=== PATIENT | female | born 1955 | race Caucasian/White ===

== ENCOUNTER 2016-10-06 12:55 | Inpatient (IN) | payer MEDICARE ==
[~2016-10-06] VITALS: Ht 172.7 cm; Wt 110.2 kg
--- NOTE | 2016-10-06 17:00 | NUR ---
ADMITTED PATIENT TO ROOM 101-B. PATIENT ACCOMPANIED BY AND AMBULANCE CREW VIA GURNEY. PATIENT IS IN STABLE CONDITION WITH V/S FOLLOWS BP 110/56. OR-88, T- 97.0, SPO2-94 AND RR-20. PATIENT IS ALERT AND ORIENTED X4. NO S/S OF DISTRESS. WITH MINIMAL PAIN OVER RIGHT KNEE. INFORMED DR. HINTON OF NEW ADMISSION. ORIENTED PATIENT TO UNIT, STAFF, ROOM AND USE OF DEVICES. SAFETY PRECAUTIONS MAINTAINED. CALL LIGHT WITHIN REACH.
[2016-10-06] MEDS ORDERED: BENZ1LOZ58 MM (18:21)
[2016-10-06] MEDS ORDERED: OXYC15TA2 PO (18:21)
[2016-10-06] MEDS ORDERED: ACET650T10 PO (18:21)
[2016-10-06] MEDS ORDERED: ONDA4AMP IVP (18:21)
[2016-10-06] MEDS ORDERED: MORP30TA59 PO (18:21)
[2016-10-06] MEDS ORDERED: DOCU-170 PO (18:21)
[2016-10-06] MEDS ORDERED: SENN8.6T60 PO (18:21)
[2016-10-06] MEDS ORDERED: NALO0.4D4 IV (18:21)
[2016-10-06] MEDS ORDERED: ZOLP10TA6 PO (18:21)
[2016-10-06] MEDS ORDERED: MAGN200T5 PO (18:21)
[2016-10-06] MEDS ORDERED: DIPH25TA62 PO (18:21)
[2016-10-06] MEDS ORDERED: CARI350T27 PO (18:21)
[2016-10-06] MEDS ORDERED: MAG-82 PO (18:21)
[2016-10-06] MEDS ORDERED: ASPI-869 PO (18:21)
[2016-10-06] MEDS ORDERED: CLON0.1T PO (18:21)
[2016-10-06] MEDS ORDERED: BISA10SU8 RC (18:21)
[2016-10-06] MEDS ORDERED: GABA-534 PO (18:21)
[2016-10-06] MEDS ORDERED: MAGN400O4 PO (18:21)
[2016-10-06] MEDS ORDERED: PANT40TA4 PO (18:21)
[2016-10-06] MEDS ORDERED: DULO30CA2 PO (18:21)
[2016-10-06] MEDS ORDERED: HYDR1DIS3 SQ (18:21)
[2016-10-06] MEDS ORDERED: ZOLPIDEM 5 MG TABLET PO PRN ×2 (18:30→20:30)
--- NOTE | 2016-10-06 19:30 | NUR ---
RECEIVED PATIENT AMBULATING TO BATHROOM WITH WALKER AND CONTACT GUARD ASSIST OF DAY NURSE. VOIDED IN ADEQUATE AMOUNTS IN TOILET S/P ALEXANDER D/C'D AT [facility]. C/O CHRONIC PAIN, BUT MANAGEABLE AT THIS TIME. RIGHT KNEE WITH GHANSHYAM WRAP INTACT. NO DRAINAGE NOTED. CSM ADEQUATE TO RIGHT TOES. MEDS ORDERED BEING ENTERED IN THE COMPUTER AT THIS TIME. CALL LIGHT WITHIN REACH AAT. INSTRUCTED PATIENT NOT TO GET OOB WITHOUT CALLING RN FIRST. PATIENT VERBALIZES UNDERSTANDING
[2016-10-06 20:14] VITALS: BP 105/53
[2016-10-06] MEDS ORDERED: OXYCODONE HCL 5 MG TABLET PO PRN ×2 (20:30)
[2016-10-06] MEDS ORDERED: ACETAMINOPHEN 325 MG TABLET PO PRN (20:30)
[2016-10-06] MEDS ORDERED: CLONIDINE HCL 0.1 MG TABLET PO PRN (20:30)
[2016-10-06] MEDS ORDERED: PANTOPRAZOLE SODIUM 40 MG TABLET.DR PO SCH (21:00)
[2016-10-06] MEDS: DOCUSATE SODIUM 100 MG CAPSULE PO SCH (21:26)
[2016-10-06] MEDS: MAGNESIUM OXIDE 400 MG TABLET PO SCH (21:26)
[2016-10-06] MEDS: ASPIRIN 325 MG TABLET PO SCH (21:26)
[2016-10-06] MEDS ORDERED: MORPHINE SULFATE SR 15 MG TABLET.SA PO SCH (22:00)
[2016-10-06] MEDS: MORPHINE SULFATE SR 30 MG TABLET.SA PO SCH (22:03)
[2016-10-07] MEDS ORDERED: diphenhydrAMINE 25 MG CAP PO PRN (00:30)
[2016-10-07] MEDS ORDERED: MAGNESIUM HYDROXIDE 30 ML LIQUID UDC PO PRN (00:30)
[2016-10-07] MEDS ORDERED: BENZOCAINE/MENTH/CETYLPYRD LOZENGE MM PRN (00:30)
[2016-10-07] MEDS ORDERED: MAG HYDROX/AL HYDROX/SIMETH 30 ML LIQUID UDC PO PRN (00:30)
[2016-10-07] MEDS ORDERED: SENNOSIDES 1 TABLET PO PRN (00:30)
[2016-10-07] MEDS ORDERED: BISACODYL 10 MG SUPP.RECT RC PRN (00:30)
[2016-10-07] MEDS: OXYCODONE HCL 5 MG TABLET PO PRN ×2 (03:41→08:19)
--- NOTE | 2016-10-07 06:00 | NUR ---
slept fairly well. medicated x 3 for chronic LBP and acute right knee pain with effective relief.voiding in adequate amounts after ambulating to toilet.s/p [place] d/c'd at [facility]. right knee niko wrap remains intact with good csm to toes. scd applied to left leg for vte prophylaxis.mrsa screening of bilateral nares sent to lab. call light in reach
[2016-10-07] MEDS: PANTOPRAZOLE SODIUM 40 MG TABLET.DR PO SCH (06:12)
[2016-10-07] MEDS: MORPHINE SULFATE SR 30 MG TABLET.SA PO SCH ×3 (06:13→21:59)
--- NOTE | 2016-10-07 07:00 | NUR ---
PT IS LAYING IN BED COMFORTABLY. NO S/S OF RESPIRATORY DISTRESS NOTED. ALL SAFETY NEEDS ARE MET. WILL CONTINUE TO MONITOR.
[2016-10-07 07:55] VITALS: BP 97/51
[2016-10-07] MEDS: GABAPENTIN 300 MG CAPSULE PO SCH ×3 (08:15→17:26)
[2016-10-07] MEDS: DOCUSATE SODIUM 100 MG CAPSULE PO SCH ×2 (08:16→20:51)
[2016-10-07] MEDS: DULOXETINE 30 MG CAPSULE.DR PO SCH (08:16)
[2016-10-07] MEDS: ASPIRIN 325 MG TABLET PO SCH ×2 (08:16→17:26)
[2016-10-07 11:05] VITALS: BP 97/51
--- NOTE | 2016-10-07 19:29 | NUR ---
NO CHANGES NOTED. PT GETS AGITATED AT TIMES, PT IS COOPERATIVE WITH NURSING TREATMENT AND INTERVENTIONS. NO S/S OF RESPIRATORY DISTRESS NOTED. NO PAIN REPORTED. ALL SAFETY NEEDS ARE MET.
--- NOTE | 2016-10-07 19:30 | NUR ---
RECEIVED PATIENT AWAKE , ALERT, AND ORIENTED. COMFORTABLE WITH MANAGEABLE PAIN LEVEL OF CHRONIC LBP AND RIGHT SURGICAL KNEE PAIN AT 4/10. AMBULATED WITH WALKER AND ONE CONTACT GUARD ASSIST TO BATHROOM.GAIT IS SLIGHTLY UNSTEADY. RIGHT KNEE WRAPPED WITH GHANSHYAM INTACT. CSM ADEQUATE TO RIGHT TOES. RIGHT LEG ELEVATED ON PILLOW FOR COMFORT. LRFT SCD FOR VTE PROPHYLAXIS. CALL LIGHT WITHIN REACH AAT. INSTRUCTED TO CALL RN FOR ANY REQUESTS AND TO NOT GET OOB BY SELF WITHOUT CALLING FIRST. PATIENT VERBALIZES UNDERSTANDING.
[2016-10-07] MEDS: MAGNESIUM OXIDE 400 MG TABLET PO SCH (20:51)
[2016-10-07 21:35] VITALS: BP 100/48
--- NOTE | 2016-10-08 05:30 | NUR ---
patient slept well tonight. improved ambulation to toilet with contact guard assist.independently pulls pants down, wipes herself and pulls her pants up.chronic pain and acute surgical pain from right knee managed with atc ms contin. right is wrapped with niko wrap, clean, dry, and intact/ free from injury this shift. all needs requested were met.call light within reach aat
[2016-10-08] MEDS: MORPHINE SULFATE SR 30 MG TABLET.SA PO SCH ×3 (05:57→21:30)
[2016-10-08] MEDS: PANTOPRAZOLE SODIUM 40 MG TABLET.DR PO SCH (06:28)
[2016-10-08 09:10] VITALS: BP 87/49
[2016-10-08] MEDS: DOCUSATE SODIUM 100 MG CAPSULE PO SCH ×2 (09:45→21:28)
[2016-10-08] MEDS: ASPIRIN 325 MG TABLET PO SCH ×2 (09:45→18:54)
[2016-10-08] MEDS: GABAPENTIN 300 MG CAPSULE PO SCH ×3 (09:45→18:54)
[2016-10-08] MEDS: OXYCODONE HCL 5 MG TABLET PO PRN (09:47)
[2016-10-08] MEDS: DULOXETINE 30 MG CAPSULE.DR PO SCH (09:49)
--- NOTE | 2016-10-08 19:00 | NUR ---
Patient remains alert, verbally responsive, coherent, afebrile, not in any form of acute distress. She had 2 hours on CPM.
[2016-10-08 20:40] VITALS: BP 100/51
[2016-10-08] MEDS: MAGNESIUM OXIDE 400 MG TABLET PO SCH (21:28)
[2016-10-08] MEDS: CARISOPRODOL 350 MG TABLET PO PRN (21:29)
[2016-10-09] MEDS: OXYCODONE HCL 5 MG TABLET PO PRN ×4 (02:37→23:34)
[2016-10-09] MEDS: PANTOPRAZOLE SODIUM 40 MG TABLET.DR PO SCH (06:13)
[2016-10-09] MEDS: MORPHINE SULFATE SR 30 MG TABLET.SA PO SCH ×3 (06:49→22:30)
[2016-10-09 08:00] VITALS: BP 99/52
--- NOTE | 2016-10-09 08:00 | NUR ---
Discussed plan of care with patient re: fall precaution and proper pain management through out today. Pt agreeable with plan of care. Noted bruising on right inner thigh and right lower leg with +3 edema. Ice applied on right knee. Call light is within reach.
[2016-10-09] MEDS: DOCUSATE SODIUM 100 MG CAPSULE PO SCH ×2 (08:32→21:01)
[2016-10-09] MEDS: DULOXETINE 30 MG CAPSULE.DR PO SCH (08:32)
[2016-10-09] MEDS: GABAPENTIN 300 MG CAPSULE PO SCH ×3 (08:32→16:21)
[2016-10-09] MEDS: ASPIRIN 325 MG TABLET PO SCH ×2 (08:32→16:21)
[2016-10-09] MEDS: CARISOPRODOL 350 MG TABLET PO PRN (11:24)
--- NOTE | 2016-10-09 18:30 | NUR ---
Plan of care effective. No fall noted and pain managed with medications. Dressing changed on right knee surgical incision with clif no redness noted.
--- NOTE | 2016-10-09 19:30 | NUR ---
PT ALERT AND ORIENTED IN BED. NO DISTRESS NOTED. COOLING MEASURES APPLIED TO RIGHT KNEE. PEDAL PULSES FELT BILATERALLY. SAFETY MAINTAINED. CALL LIGHT WITHIN REACH. WILL CONTINUE TO MONITOR.
[2016-10-09] MEDS: MAGNESIUM OXIDE 400 MG TABLET PO SCH (21:01)
[2016-10-09 22:12] VITALS: BP 98/52
[2016-10-09 23:35] VITALS: BP 119/64
[2016-10-10] MEDS: CARISOPRODOL 350 MG TABLET PO PRN ×3 (01:08→22:31)
[2016-10-10 01:10] VITALS: BP 112/79
[2016-10-10] MEDS: PANTOPRAZOLE SODIUM 40 MG TABLET.DR PO SCH (06:25)
[2016-10-10] MEDS: MORPHINE SULFATE SR 30 MG TABLET.SA PO SCH ×3 (06:26→21:12)
--- NOTE | 2016-10-10 06:49 | NUR ---
PT ALERT AND ORIENTED IN BED. NO DISTRESS NOTED. BP 119/56. MS CONTIN GIVEN ORDERED. ICE PROVIDED FOR RIGHT KNEE. SAFETY MAINTAINED. CALL LIGHT WITHIN REACH.
[2016-10-10 07:03] VITALS: BP 119/56
--- NOTE | 2016-10-10 07:19 | NUR ---
Patient received from carpet technician, resting comfortably in bed. No signs of acute distress noted, respirations even and unlabored. O2 sat WNL on RA, VS WNL. No other verbalized needs at this time. Safety and fall precautions maintained, call light within reach.
[2016-10-10 08:04] VITALS: BP 93/54
[2016-10-10] MEDS: ASPIRIN 325 MG TABLET PO SCH ×2 (09:03→16:37)
[2016-10-10] MEDS: DULOXETINE 30 MG CAPSULE.DR PO SCH (09:03)
[2016-10-10] MEDS: GABAPENTIN 300 MG CAPSULE PO SCH ×3 (09:03→16:38)
[2016-10-10] MEDS: DOCUSATE SODIUM 100 MG CAPSULE PO SCH ×2 (09:03→21:13)
[2016-10-10] MEDS: OXYCODONE HCL 5 MG TABLET PO PRN (09:59)
--- NOTE | 2016-10-10 19:30 | NUR ---
Received patient resting in bed with no s/s of distress. Call light within reach. Assured of frequent checks during the shift. Will continue to monitor.
[2016-10-10] MEDS: MAGNESIUM OXIDE 400 MG TABLET PO SCH (21:13)
[2016-10-11] MEDS: CARISOPRODOL 350 MG TABLET PO PRN (03:55)
[2016-10-11] MEDS: OXYCODONE HCL 5 MG TABLET PO PRN ×3 (04:00→23:49)
[2016-10-11] MEDS: PANTOPRAZOLE SODIUM 40 MG TABLET.DR PO SCH (06:49)
--- NOTE | 2016-10-11 07:46 | NUR ---
Patient resting in bed with no s/s of distress, verbalized a little relief of pain from medications. Respirations even and unlabored. Dressing changed. Kept comfortable. Safety precautions in place. Call light kept within reach. Endorsed accordingly.
[2016-10-11 08:28] VITALS: BP 92/50
[2016-10-11] MEDS: GABAPENTIN 300 MG CAPSULE PO SCH ×3 (09:34→16:57)
[2016-10-11] MEDS: DOCUSATE SODIUM 100 MG CAPSULE PO SCH ×2 (09:34→21:13)
[2016-10-11] MEDS: DULOXETINE 30 MG CAPSULE.DR PO SCH (09:34)
[2016-10-11] MEDS: ASPIRIN 325 MG TABLET PO SCH ×2 (09:34→16:57)
[2016-10-11] MEDS: MORPHINE SULFATE SR 30 MG TABLET.SA PO SCH ×3 (09:51→22:26)
[2016-10-11 12:00] VITALS: BP 108/68
--- NOTE | 2016-10-11 19:20 | NUR ---
Received patient in bed. Alert and verbally responsive. Able to make needs known. Denies any pain and discomfort at this time. No acute distress. No SOB. Dressing intact on R knee. Slight swelling noted. Pitting edema +2. Bruising noted on right lower extremity. Kept clean and dry. All needs attended to promptly. Call light within reach. Will continue to monitor.
[2016-10-11 20:00] VITALS: BP 132/60
[2016-10-11] MEDS: MAGNESIUM OXIDE 400 MG TABLET PO SCH (21:13)
[2016-10-12] MEDS: MORPHINE SULFATE SR 30 MG TABLET.SA PO SCH ×3 (06:06→22:29)
[2016-10-12] MEDS: PANTOPRAZOLE SODIUM 40 MG TABLET.DR PO SCH (06:08)
--- NOTE | 2016-10-12 06:10 | NUR ---
Patient awake at this time. Slept comfortably through out the night. Pain medication given as ordered. Pain level 8/10 in right knee. No acute distress noted. No SOB. Amublate to the bathroom with walker. Tolerated well. All needs attended to promptly. Call light within reach. Will continue to monitor.
[2016-10-12] MEDS: ASPIRIN 325 MG TABLET PO SCH ×2 (09:07→18:09)
[2016-10-12] MEDS: GABAPENTIN 300 MG CAPSULE PO SCH ×3 (09:08→18:09)
[2016-10-12] MEDS: DULOXETINE 30 MG CAPSULE.DR PO SCH (09:08)
[2016-10-12] MEDS: DOCUSATE SODIUM 100 MG CAPSULE PO SCH ×2 (09:08→21:09)
[2016-10-12] MEDS: OXYCODONE HCL 5 MG TABLET PO PRN (10:41)
[2016-10-12 10:45] VITALS: BP 92/43
--- NOTE | 2016-10-12 15:49 | NUR ---
Administrative Operations Coordinator: TYSON met with patient and at bedside to assess needs and provide support. Pt appeared fatigued during interview, however was calm and cooperative. Pt reported she was feeling tired due to physical therapy earlier. She stated her leg is "getting use to" ambulating again. She reported she has been feeling tired these past two days, however is motivated to complete therapy. Pt's was present during interview who demonstrated strong support. Per pt's , Cm he will be at home to provide additional care for the pt. Pt requested some DME upon discharge, TYSON will refer to Eveline to follow-up. TYSON provided active listening and supportive counseling throughout interview. TYSON will reassess for additional needs prior to pt being discharged. TYSON will remain available as needed. Addendum: 10/12/16 at 1559 by ELSA MEHTA Pt requested LADONNA, TYSON provided.
--- NOTE | 2016-10-12 18:30 | NUR ---
Pt tolerated physical therapy today. Pt denies any c/o pain. Call light is within reach.
[2016-10-12 21:00] VITALS: BP 98/45
[2016-10-12] MEDS: MAGNESIUM OXIDE 400 MG TABLET PO SCH (21:09)
[2016-10-12 22:30] VITALS: BP 114/50
[2016-10-13] MEDS: CARISOPRODOL 350 MG TABLET PO PRN (00:35)
--- NOTE | 2016-10-13 05:26 | NUR ---
Patient alert and oriented and verbally able to let needs known. Did complain of pain and discomfort, medication administered as ordered with some relief. Patient does have call light within reach, all needs attended to .
[2016-10-13] MEDS: MORPHINE SULFATE SR 30 MG TABLET.SA PO SCH ×3 (06:19→21:13)
[2016-10-13] MEDS: PANTOPRAZOLE SODIUM 40 MG TABLET.DR PO SCH (06:19)
[2016-10-13 08:50] VITALS: BP 97/47
[2016-10-13] MEDS: GABAPENTIN 300 MG CAPSULE PO SCH ×3 (09:27→16:01)
[2016-10-13] MEDS: ASPIRIN 325 MG TABLET PO SCH ×2 (09:27→16:01)
[2016-10-13] MEDS: DOCUSATE SODIUM 100 MG CAPSULE PO SCH ×2 (09:27→21:12)
[2016-10-13] MEDS: OXYCODONE HCL 5 MG TABLET PO PRN ×2 (09:28→16:01)
[2016-10-13] MEDS: DULOXETINE 30 MG CAPSULE.DR PO SCH (09:52)
--- NOTE | 2016-10-13 10:00 | NUR ---
REMAIN ON PAIN MANAGEMENT ORDERED AND HELPFUL RIGHT KNEE DRESSING CHANGED WITH ALF INTACT WITH NO DRAINAGE AT THIS TIME.
[2016-10-13 11:00] VITALS: BP 100/47
--- NOTE | 2016-10-13 14:09 | NUR ---
IDT MEETING 10/13/16
[2016-10-13 16:16] VITALS: BP 103/47
--- NOTE | 2016-10-13 18:00 | NUR ---
CONTINUE ON CPM MACHINE AND TOLERATING 80 DEGREES AT THIS TIME
[2016-10-13 20:01] VITALS: BP 102/51
[2016-10-13] MEDS: MAGNESIUM OXIDE 400 MG TABLET PO SCH (21:12)
[2016-10-14] MEDS: OXYCODONE HCL 5 MG TABLET PO PRN ×3 (01:40→18:05)
[2016-10-14] MEDS: MORPHINE SULFATE SR 30 MG TABLET.SA PO SCH ×3 (06:00→21:39)
[2016-10-14] MEDS: PANTOPRAZOLE SODIUM 40 MG TABLET.DR PO SCH (06:00)
--- NOTE | 2016-10-14 06:06 | NUR ---
Patient alert and oriented and verbally able to let needs known. Slept well throughout the night, patient ambulatory to restroom, administered medications as ordered. Call light within reach, will continue to monitor.
--- NOTE | 2016-10-14 07:15 | NUR ---
Patient received from lieutenant shift supervisor, resting comfortably in bed. No signs of acute distress noted, respirations even and unlabored. VS WNL, no complaints of pain, no other verbalized needs at this time. Surgical incision to right knee clean and dry, no redness or swelling noted. Safety precautions and fall precautions maintained, call light within reach.
[2016-10-14 08:00] VITALS: BP 98/51
[2016-10-14] MEDS: ASPIRIN 325 MG TABLET PO SCH ×2 (08:35→18:00)
[2016-10-14] MEDS: DOCUSATE SODIUM 100 MG CAPSULE PO SCH ×2 (08:35→21:38)
[2016-10-14] MEDS: DULOXETINE 30 MG CAPSULE.DR PO SCH (08:35)
[2016-10-14] MEDS: GABAPENTIN 300 MG CAPSULE PO SCH ×3 (08:35→17:58)
[2016-10-14 20:05] VITALS: BP 110/46
--- NOTE | 2016-10-14 21:00 | NUR ---
NSG: Received Patient alert and oriented and verbally responsive laying in bed.able to let needs known. patient c/o right knee pain and discomfort, medication administered as ordered with some relief. compliant with meds, all needs attended .continue monitoring for safety.
[2016-10-14] MEDS: MAGNESIUM OXIDE 400 MG TABLET PO SCH (21:39)
[2016-10-14] MEDS: CARISOPRODOL 350 MG TABLET PO PRN (22:24)
[2016-10-15] VITALS (9 sets, daily range): BP systolic 99–121; BP diastolic 49–63
[2016-10-15] MEDS: OXYCODONE HCL 5 MG TABLET PO PRN ×5 (02:17→23:56)
[2016-10-15] MEDS: MORPHINE SULFATE SR 30 MG TABLET.SA PO SCH ×3 (05:31→21:13)
[2016-10-15] MEDS: PANTOPRAZOLE SODIUM 40 MG TABLET.DR PO SCH (06:08)
[2016-10-15 06:50] LABS: BASOPHILS # (AUTO) 0.2 K/uL (0.0-8.0); BASOPHILS % (AUTO) 3.1 % (0.0-2.0); EOSINOPHILS # (AUTO) 0.6 K/uL (0.0-0.7); EOSINOPHILS % (AUTO) 9.5 % (0.0-7.0); LYMPHOCYTES # (AUTO) 2.1 K/UL (0.8-4.8); LYMPHOCYTES % (AUTO) 32.4 % (20.5-51.5); MEAN CORPUSCULAR HEMOGLOBIN 28.2 UUG (27.0-31.0); MEAN CORPUSCULAR HGB CONC 33 g/dL (32.0-37.0); MEAN CORPUSCULAR VOLUME 86.8 FL (81.0-99.0); MONOCYTES # (AUTO) 0.6 K/UL (0.1-1.30); MONOCYTES % (AUTO) 9.2 % (0.0-11.0); NEUTROPHILS # (AUTO) 2.9 K/UL (1.8-8.9); NEUTROPHILS % (AUTO) 45.8 % (38.5-71.5); PLATELET COUNT (AUTO) 423 K/UL (150-450); RED BLOOD CELL COUNT(AUTO) 2.61 MIL/UL (4.2-5.4); WHITE BLOOD COUNT (AUTO) 6.4 K/UL (4.0-11.2)
--- NOTE | 2016-10-15 06:58 | NUR ---
NSG: Patient Remain alert and oriented and verbally able to let needs known. Slept well through the night, patient ambulatory to restroom, administered medications as ordered. Call light within reach, will continue to monitor. ms Contin po routine dose effective.
[2016-10-15 07:14] LABS: HEMATOCRIT 22.7 % (37-47); HEMOGLOBIN 7.4 G/DL (12.0-16.0)
[2016-10-15 07:27] LABS: BILIRUBIN,TOTAL 0.7 mg/dL (0.2-1.0); CREATININE 0.7 mg/dL (0.6-1.3); MAGNESIUM 2.2 mg/dL (1.8-2.4); PHOSPHOROUS 4.7 mg/dL (2.5-4.9); TOTAL PROTEIN, SERUM 6.3 g/dL (6.4-8.2)
[2016-10-15 07:59] LABS: THYROID STIMULATING HORMONE 2.176 mIU/mL (0.358-3.740)
[2016-10-15 08:42] LABS: BASOPHILS # (AUTO) 0.1 K/uL (0.0-8.0); BASOPHILS % (AUTO) 0.9 % (0.0-2.0); EOSINOPHILS # (AUTO) 0.6 K/uL (0.0-0.7); EOSINOPHILS % (AUTO) 9.7 % (0.0-7.0); HEMATOCRIT 24.7 % (37-47); LYMPHOCYTES % (AUTO) 32.3 % (20.5-51.5); MEAN CORPUSCULAR HEMOGLOBIN 27.7 UUG (27.0-31.0); MEAN CORPUSCULAR HGB CONC 32 g/dL (32.0-37.0); MEAN CORPUSCULAR VOLUME 86.4 FL (81.0-99.0); MONOCYTES # (AUTO) 0.6 K/UL (0.1-1.30); MONOCYTES % (AUTO) 9.9 % (0.0-11.0); NEUTROPHILS % (AUTO) 47.2 % (38.5-71.5); PLATELET COUNT (AUTO) 631 K/UL (150-450); RED BLOOD CELL COUNT(AUTO) 2.86 MIL/UL (4.2-5.4); WHITE BLOOD COUNT (AUTO) 6.3 K/UL (4.0-11.2)
[2016-10-15 08:48] LABS: HEMOGLOBIN 7.9 G/DL (12.0-16.0)
[2016-10-15] MEDS: GABAPENTIN 300 MG CAPSULE PO SCH ×3 (09:05→17:43)
[2016-10-15] MEDS: DULOXETINE 30 MG CAPSULE.DR PO SCH (09:05)
[2016-10-15] MEDS: ASPIRIN 325 MG TABLET PO SCH ×2 (09:05→17:43)
[2016-10-15] MEDS: DOCUSATE SODIUM 100 MG CAPSULE PO SCH ×2 (09:05→21:11)
[2016-10-15] MEDS ORDERED: IV NS 1000 ML 1,000 ML IV ONE (09:45)
--- NOTE | 2016-10-15 14:30 | NUR ---
PT alert and oriented. blood consent signed by the patient and by the MD. health teaching done. pt verbalized understanding. 1 pack rbc given to the patient. tolerating well. no signs of reaction from the transfusion. v/s checked and monitored and wnl.
--- NOTE | 2016-10-15 19:30 | NUR ---
Received patient ambulating in the hallways. No report of discomfort/pain at this time. Supervised during ambulation and back to her room. Call light within reach. Will continue to monitor.
[2016-10-15] MEDS: MAGNESIUM OXIDE 400 MG TABLET PO SCH (21:11)
[2016-10-15 22:49] LABS: BASOPHILS # (AUTO) 0.1 K/uL (0.0-8.0); BASOPHILS % (AUTO) 0.8 % (0.0-2.0); EOSINOPHILS # (AUTO) 0.5 K/uL (0.0-0.7); EOSINOPHILS % (AUTO) 7.3 % (0.0-7.0); HEMATOCRIT 25.9 % (37-47); HEMOGLOBIN 8.4 G/DL (12.0-16.0); LYMPHOCYTES # (AUTO) 1.8 K/UL (0.8-4.8); LYMPHOCYTES % (AUTO) 25.3 % (20.5-51.5); MEAN CORPUSCULAR HEMOGLOBIN 28.1 UUG (27.0-31.0); MEAN CORPUSCULAR HGB CONC 33 g/dL (32.0-37.0); MEAN CORPUSCULAR VOLUME 86.6 FL (81.0-99.0); MONOCYTES # (AUTO) 0.4 K/UL (0.1-1.30); MONOCYTES % (AUTO) 5.1 % (0.0-11.0); NEUTROPHILS # (AUTO) 4.3 K/UL (1.8-8.9); NEUTROPHILS % (AUTO) 61.5 % (38.5-71.5); PLATELET COUNT (AUTO) 562 K/UL (150-450); RED BLOOD CELL COUNT(AUTO) 2.99 MIL/UL (4.2-5.4); WHITE BLOOD COUNT (AUTO) 7.1 K/UL (4.0-11.2)
[2016-10-15] MEDS: CARISOPRODOL 350 MG TABLET PO PRN (22:51)
[2016-10-16] MEDS: OXYCODONE HCL 5 MG TABLET PO PRN ×4 (03:58→17:32)
[2016-10-16] MEDS: PANTOPRAZOLE SODIUM 40 MG TABLET.DR PO SCH (06:15)
[2016-10-16] MEDS: MORPHINE SULFATE SR 30 MG TABLET.SA PO SCH ×3 (06:18→22:07)
--- NOTE | 2016-10-16 07:43 | NUR ---
Patient resting in bed, respirations even and unlabored. No s/s of acute distress. CPM done for 1.5 hrs last night per patient's request. Pain interventions given during the shift: MS Contin, Oxycodone, Soma--as ordered. Verbalized some relief. Kept comfortable, needs attended. Slept intermittently. Complained of pain on incision site upon waking up this AM. Ice packs placed on affected body part. Endorsed pain reports and management to day shift. Supervised during ambulation. Call light kept within reach.
[2016-10-16] MEDS: ASPIRIN 325 MG TABLET PO SCH ×2 (09:24→17:23)
[2016-10-16] MEDS: GABAPENTIN 300 MG CAPSULE PO SCH ×3 (09:24→17:23)
[2016-10-16] MEDS: DOCUSATE SODIUM 100 MG CAPSULE PO SCH ×2 (09:24→20:39)
[2016-10-16] MEDS: DULOXETINE 30 MG CAPSULE.DR PO SCH (09:25)
--- NOTE | 2016-10-16 09:30 | NUR ---
RECEIVED PATIENT AWAKE IN BED. NO S/S OF DISTRESS. WITH COMPLAINTS OF PAIN OVER RIGHT KNEE RATED 10/10 RADIATING TO RIGHT FOOT AND ANKLE. SURGICAL SITE WARM TO TOUCH, NO EXUDATES OR DISCHARGER NOTED. BRUISING OVER FOOT, ANKLE AND LOWER LEG KNEE NOTED. PRN PAIN MEDICATIONS GIVEN. DRESSING CHANGED DONE. INFORMED DR GONZALES OF INCREASING PAIN. NO NEW ORDERS AT THIS TIME
[2016-10-16] MEDS: HYDROCORTISONE 1% CREAM 30 GM TUBE TP SCH ×2 (10:30→17:23)
--- NOTE | 2016-10-16 11:30 | NUR ---
SEEN AND EXAMINED BY DR. HINTON DUPLEX SCAN ORDERED STAT. LOVENOX 40 MG OD ORDERED. ELEVATED KNEE WITH PILLOWS. ATTENDED TO NEEDS PROMPTLY.
[2016-10-16] MEDS ORDERED: ENOXAPARIN SODIUM 30 MG/0.3 ML DISP.SYRIN SUBCUT SCH (13:00)
[2016-10-16 15:40] VITALS: BP 116/59
--- NOTE | 2016-10-16 17:59 | NUR ---
PAIN RATED 5/6. KEPT KNEES ELEVATED. EATING DINNER. TOLERATED DIET WELL.
--- NOTE | 2016-10-16 19:22 | NUR ---
Dr. Buchanan ordered to continue OT and PT. Possible discharge moved to 10/20 due to worsening pain with mobility and swelling. Endorsed.
--- NOTE | 2016-10-16 19:30 | NUR ---
Received patient resting bed. Respirations even and unlabored. Complained of pain at 7/10 on right leg. Intervention will be given. Will continue to monitor. Call light within reach.
[2016-10-16 20:00] VITALS: BP 113/57
[2016-10-16] MEDS: MAGNESIUM OXIDE 400 MG TABLET PO SCH (20:39)
[2016-10-16] MEDS: ENOXAPARIN SODIUM 40 MG/0.4 ML DISP.SYRIN SQ SCH (20:44)
[2016-10-16] MEDS: CARISOPRODOL 350 MG TABLET PO PRN (22:09)
--- NOTE | 2016-10-16 22:15 | NUR ---
Patient requested for Soma, administered as ordered. Incision site cleaned, dressing changed.
[2016-10-17] MEDS: OXYCODONE HCL 5 MG TABLET PO PRN ×3 (02:24→15:31)
--- NOTE | 2016-10-17 02:30 | NUR ---
Oxycodone 30mg given as ordered for pain level 7/10. Will reassess for effectiveness.
--- NOTE | 2016-10-17 04:17 | NUR ---
Ice packs placed on patient's right knee to help with pain relief and comfort. Patient stated, "That helps a lot."
[2016-10-17] MEDS: MORPHINE SULFATE SR 30 MG TABLET.SA PO SCH ×3 (06:12→21:08)
[2016-10-17] MEDS: PANTOPRAZOLE SODIUM 40 MG TABLET.DR PO SCH (06:13)
--- NOTE | 2016-10-17 06:35 | NUR ---
Patient went back to sleep after taking AM meds. Respirations even and unlabored. Pain meds given with some relief. Call light kept within reach. Frequent checks done. Needs attended. Kept clean and comforatble. Safety measures observed. Endorsed accordingly.
[2016-10-17] MEDS: ASPIRIN 325 MG TABLET PO SCH ×2 (08:51→17:15)
[2016-10-17] MEDS: DOCUSATE SODIUM 100 MG CAPSULE PO SCH ×2 (08:52→21:07)
[2016-10-17] MEDS: DULOXETINE 30 MG CAPSULE.DR PO SCH (08:52)
[2016-10-17] MEDS: GABAPENTIN 300 MG CAPSULE PO SCH ×3 (08:52→17:15)
[2016-10-17] MEDS: HYDROCORTISONE 1% CREAM 30 GM TUBE TP SCH ×2 (08:53→17:14)
--- NOTE | 2016-10-17 13:00 | NUR ---
SEEN AND EXAMINED BY DR. HINTON POSSIBLE DISCHARGE TOMORROW. EXAMINED COMPLAINTS OF RIGHT ANKLE PAIN. ASHANTI-SELF TID OVER AFFECTED AREA ORDERED.
--- NOTE | 2016-10-17 15:20 | NUR ---
DRESSING CHANGED DONE. NO DISCHARGES OVER WOUND NOTED. HYDROCORTISONE CREAM APPLIED. FLUSHED IV SITE. NO INFILTRATION OR INFECTION NOTED. IV SITE, PATENT.
--- NOTE | 2016-10-17 15:35 | NUR ---
APPLIED CPM ON 100 DEGREES TRACTION. PATIENT TOLERATING CPM WELL. PATIENT AMBULATED INDEPENDENTLY. SUPERVISED AMBULATION AND ENSURED SAFETY.
[2016-10-17] MEDS: METHYL SALICYLATE/MENTHOL CREAM 28 GM TUBE TOP SCH (17:15)
[2016-10-17 20:39] VITALS: BP 106/60
[2016-10-17] MEDS: MAGNESIUM OXIDE 400 MG TABLET PO SCH (21:07)
[2016-10-17] MEDS: ENOXAPARIN SODIUM 40 MG/0.4 ML DISP.SYRIN SQ SCH (21:12)
[2016-10-17] MEDS: CARISOPRODOL 350 MG TABLET PO PRN (22:31)
[2016-10-18] MEDS: OXYCODONE HCL 5 MG TABLET PO PRN ×3 (00:45→12:34)
--- NOTE | 2016-10-18 05:36 | NUR ---
Patient alert and oriented and verbally able to let needs known. Slept intermittently throughout the night. No signs of distress noted, does have call light within reach, will continue to monitor.
[2016-10-18] MEDS: MORPHINE SULFATE SR 30 MG TABLET.SA PO SCH (06:19)
[2016-10-18] MEDS: PANTOPRAZOLE SODIUM 40 MG TABLET.DR PO SCH (06:19)
[2016-10-18 07:17] VITALS: BP 106/50
[2016-10-18] MEDS: ASPIRIN 325 MG TABLET PO SCH (08:50)
[2016-10-18] MEDS: GABAPENTIN 300 MG CAPSULE PO SCH ×2 (08:51→12:34)
[2016-10-18] MEDS: DULOXETINE 30 MG CAPSULE.DR PO SCH (08:51)
[2016-10-18] MEDS: DOCUSATE SODIUM 100 MG CAPSULE PO SCH (08:51)
[2016-10-18] MEDS: METHYL SALICYLATE/MENTHOL CREAM 28 GM TUBE TOP SCH ×2 (08:55→12:35)
[2016-10-18] MEDS: HYDROCORTISONE 1% CREAM 30 GM TUBE TP SCH (09:14)
--- NOTE | 2016-10-18 14:36 | NUR ---
pt dischagred at 1400 at 05/20/17. pt vital signs stable upon discharge. pt provided information about care of right knee arthroplasty smoking cessation and diet. pt provided information about care in hospital. pt left with care. discharge information given and verbalized understanding. provided information about home health upon discharge.
== END 2016-10-18 14:46 | disposition home health service (06) | DRG 554 ==
PROVIDERS: ADMIT Physical Medicine & Rehabilitation Pain Medicine; ATTEND Physical Medicine & Rehabilitation Pain Medicine
PROC: 30233N1 Transfusion of Nonautologous Red Blood Cells into Peripheral Vein, Percutaneous Approach (ICD-10-PCS; principal; 2016-10-15)
DX: M17.11 Unilateral primary osteoarthritis, right knee (principal); F11.20 Opioid dependence, uncomplicated; Z96.651 Presence of right artificial knee joint; E66.01 Morbid (severe) obesity due to excess calories; Z68.36 Body mass index [BMI] 36.0-36.9, adult; G89.29 Other chronic pain; M54.5 Low back pain; K21.9 Gastro-esophageal reflux disease without esophagitis; F32.9 Major depressive disorder, single episode, unspecified; M79.7 Fibromyalgia; D64.9 Anemia, unspecified
CPT/HCPCS: 36415; 82306; 83735; 84100; 84443; 85025; 86850; 86900; 86901; 86920; 97110; 97112; 97116; 97530; 97535; A4663; J1650; J7030; P9016-BL; P9021